=== PATIENT | female | born 1955 | race Caucasian/White ===

== ENCOUNTER 2021-05-30 20:24 | Emergency (ER) | payer MEDICARE, OTHER ==
[~2021-05-30] VITALS: Ht 152.4 cm; Wt 83.0 kg
--- NOTE | 2021-05-30 21:10 | NUR ---
PRESENTED TO THE ER FOR C/O DIZZINESS AND TINGLING SENSATION ON BLE AND BUE SINCE YESTERDAY AND WORSE TODAY. - H/A. NO FACIAL DROOP OR SLURRED SPPEECH . AMBULATORY W/ STEADY GAITS TO BED 9 ER. WAS PLACED ON A MONITOR . WILL CONT TO MONITOR ,
--- NOTE | 2021-05-30 21:31 | NUR ---
RAD AT BED SIDE
[2021-05-30 22:01] LABS: BASOPHILS # (AUTO) 0.1 K/uL (0.0-0.2); BASOPHILS % (AUTO) 0.7 % (0.0-2.0); EOSINOPHILS % (AUTO) 1.7 % (0.0-6.0); HEMATOCRIT 41 % (33-45); HEMOGLOBIN 13.8 g/dL (11.5-14.8); LYMPHOCYTES # (AUTO) 1.7 K/uL (0.8-4.8); LYMPHOCYTES % (AUTO) 21.7 % (20.0-44.0); MEAN CORPUSCULAR HGB CONC 34 g/dl (31.0-36.0); MEAN CORPUSCULAR VOLUME 92 fL (82-100); MONOCYTES # (AUTO) 0.4 K/uL (0.1-1.30); NEUTROPHILS # (AUTO) 5.6 K/uL (1.8-8.9); NEUTROPHILS % (AUTO) 70.9 % (43.0-81.0); PLATELET COUNT (AUTO) 259 K/uL (150-450); RED BLOOD CELL COUNT(AUTO) 4.46 MIL/uL (4.0-5.2); WHITE BLOOD COUNT (AUTO) 7.9 K/uL (4.3-11.0)
[2021-05-30 22:38] LABS: CALCIUM, SERUM 8.9 mg/dL (8.5-10.1); CARBON DIOXIDE 25 mmol/L (21-32); CHLORIDE 103 mmol/L (98-107); CREATININE 0.8 mg/dL (0.6-1.3); GLUCOSE 116 mg/dL (74-106); POTASSIUM 3.6 mmol/L (3.5-5.1); SODIUM SERUM 137 mmol/L (136-145); UREA NITROGEN, BLOOD 24 mg/dL (7-18)
[2021-05-30] MEDS ORDERED: MECLIZINE HCL 12.5 MG TABLET PO ONE (23:30)
[2021-05-30] MEDS ORDERED: MECLIZINE HCL 25 MG TABLET ONE (23:41)
[2021-05-31] MEDS ORDERED: MECL-159 PO (00:44)
--- NOTE | 2021-05-31 00:55 | NUR ---
PT IS MEDICALLY STABLE FOR D/C. IV removed. Catheter intact and site benign. Pressure and 4x4 applied to site. No bleeding noted.Patient discharged to home in stable condition. Rx and Written and verbal after care instructions given. Patient verbalizes understanding of instruction.
[2021-05-31 01:07] VITALS: BP 109/68
== END 2021-05-31 01:00 | disposition home or self-care (01) ==
LOC: ER 20:37
DX: R42 Dizziness and giddiness (principal); E78.5 Hyperlipidemia, unspecified; M19.90 Unspecified osteoarthritis, unspecified site
CPT/HCPCS: 36415; 70450; 71045; 80048; 84484; 85025; 93005; 99285; J8597